=== PATIENT | female | born 1945 ===

== ENCOUNTER 2023-06-30 12:42 | Emergency (ER) | payer MEDICARE, SELFPAY ==
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
[2023-06-30 13:00] VITALS: BP 126/84; PULSE 64; RESP 16; TEMP 37; O2SAT 98; BMI 23.4
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
[2023-06-30 15:13] LABS: MANUAL DIFF FLAG NO
[2023-06-30 15:15] LABS: Basophils Absolute Auto 0.1 X10*3/uL (0.0-0.2); Basophils Percent Auto 0.7 % (0-2); Eosinophils Absolute Auto 0.1 X10*3/uL (0.0-0.4); Eosinophils Percent Auto 1.7 % (0-4); Hematocrit 33.7 % (37.0-47.0); Imm Gran Abs Auto 0.03 X10*3/uL (0.00-0.03); Imm Gran Pct Auto 0.4 % (0.0-0.4); Lymphocytes Absolute Auto 1.6 X10*3/uL (1.2-4.9); Lymphocytes Percent Auto 22.2 % (20-40); Mean Corpuscular HGB Conc 32.6 g/dl (31.0-35.0); Mean Corpuscular Hemoglobin 32.4 pg (27.0-33.0); Mean Corpuscular Volume 99.4 fL (80.0-98.0); Mean Platelet Volume 9.9 fL (9.4-12.3); Monocytes Absolute Auto 0.8 X10*3/uL (0.1-1.2); Monocytes Percent Auto 10.9 % (2-11); Neutrophils Absolute Auto 4.7 x10*3/uL (2.0-8.3); Neutrophils Percent Auto 64.1 % (45-73); Platelet Count 259 X10*3/uL (160-400); Red Blood Count 3.39 X10*6/uL (4.20-5.50); Red Cell Distribution Width 13.8 % (11.0-16.0); White Blood Count 7.3 X10*3/uL (4.8-10.8)
[2023-06-30 15:30] LABS: Alanine Aminotransferase 14 U/L (0-31); Albumin Level 3.7 g/dL (3.5-5.0); Alkaline Phosphatase 61 U/L (39-117); Anion Gap 12 (12-20); Aspartate Amino Transferase 20 U/L (5-31); Bilirubin Total 0.3 mg/dL (0.0-1.0); Blood Urea Nitrogen 20 mg/dL (9-16); Carbon Dioxide 26 mmol/L (22-29); Chloride 108 mmol/L (96-108); Creatinine Clr Calc Pharmacy 58.1; Estimated Glomerular Filt Rate > 60; Ethanol < 10 mg/dL; Glucose Random 102 mg/dL (60-115); Sodium 142 mmol/L (135-145); Total Protein 6.4 g/dL (6.5-8.0)
[2023-06-30 15:32] LABS: Salicylate < 5.0 mg/dL (15-30)
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
[2023-06-30 16:25] VITALS: BP 147/65; PULSE 72; RESP 20; TEMP 36.7; O2SAT 97
[2023-06-30] MEDS: LORazepam 0.5 MG TABLET PO (17:49)
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
[2023-06-30 19:30] VITALS: BP 123/71; PULSE 86; RESP 16; TEMP 36.6; O2SAT 100
--- NOTE | 2023-06-30 19:31 | MHC.EDTECH ---
Patient inc therfore patient total bed changed
--- NOTE | 2023-06-30 21:48 | MHC.CARE ---
CARE Team assessed and cleared the pt to return to the SNF/[facility] [[email or web address]] [facility] in [place] [phone]. Due to the late hour, the pt will return tomorrow 07/01/23.
--- NOTE | 2023-06-30 22:06 | MHC.EDTECH ---
Patient inc therefore patient changed
--- NOTE | 2023-06-30 22:19 | PHA.MEDREC ---
Pharmacy Consult ? Medication Reconciliation Pharmacy has completed the medication reconciliation. Patient from [facility] with med list. Janelle Muniz, NahidD
[2023-06-30 22:46] VITALS: BP 119/57; PULSE 67; RESP 16; TEMP 36.2; O2SAT 97
--- NOTE | 2023-07-01 02:16 | PC.NURSE ---
pt straight cathed as documented. pt tolerated well ua sent to lab. bedding changed new gown provided for pt as incontinence noted. pt repositioned. resting comfortably at this time. sitter at bedside.
[2023-07-01 02:20] LABS: Appearance Urine Clear; Color Urine Yellow; Glucose Urine UA Negative (Negative); Leukocyte Esterase Urine Small (1+) (Negative); Nitrite Urine Positive (Negative); PH 7.5 (5.0-9.0); UMIC TRIGGER UACC YES; Urine Blood Negative (Negative); Urine Ketones Negative (Negative); Urine Protein Negative (Neg-Trace)
[2023-07-01 02:28] LABS: Amphetamine Screen Urine Not Detected (Not Detect); Barbiturates, Urine Not Detected (Not Detect); Benzodiazepines Screen Urine Not Detected (Not Detect); Cannabinoid Screen Urine Not Detected (Not Detect); Cocaine Screen Urine Not Detected (Not Detect); Fentanyl, urine POSITIVE (Not Detect); Opiate Screen Urine Not Detected (Not Detect); Phencyclidine Screen Urine Not Detected (Not Detect)
[2023-07-01 02:45] LABS: Bacteria Urine 3+ (None Seen); Hyaline Casts Urine 0-2 /LPF (0-2); RBC Urine 0-2 /HPF (0-2); Squamous Epithelial Cell Urine 0-2 /HPF (0-2); UACC Culture Trigger YES; WBC Urine 21-50 /HPF (0-5)
[2023-07-01 06:03] VITALS: BP 134/64; PULSE 71; RESP 16; TEMP 36.3; O2SAT 100
[2023-07-01 09:27] VITALS: BP 122/64; PULSE 64; RESP 16; TEMP 36.9; O2SAT 96
[2023-07-01] MEDS: cefuroxime axetiL 250 MG TABLET PO (09:43)
[2023-07-01 11:18] VITALS: BP 122/64; PULSE 64; RESP 16; TEMP 36.9; O2SAT 96
== END 2023-07-01 11:20 | disposition skilled nursing facility (03) ==
PROVIDERS: Physician Assistant Medical; Emergency Provider Emergency Medicine
DX: R45.851 Suicidal ideations (principal); N39.0 Urinary tract infection, site not specified; F31.9 Bipolar disorder, unspecified; Z79.899 Other long term (current) drug therapy
CPT/HCPCS: 36415; 51701; 80053; 80179; 80307; 81001; 83735; 85025; 87086; 87088; 87186; 99285; S9485